=== PATIENT | female | born 1955 | race Caucasian/White ===

== ENCOUNTER 2016-08-24 05:52 | Inpatient (IN) | payer OTHER ==
[~2016-08-24] VITALS: Ht 157.5 cm; Wt 78.0 kg
[2016-08-24] MEDS ORDERED: LISINOPRIL-HCT1 EACH ORAL (05:57)
[2016-08-24] MEDS ORDERED: CYMBALTA60 MG ORAL (05:57)
[2016-08-24] MEDS ORDERED: PRAVASTATIN SOD20 M1 ORAL (05:57)
[2016-08-24 06:12] VITALS: BP 124/66
[2016-08-24 06:19] LABS: BASOPHILS % (AUTO) 1.8 % (0.0-2.0); EOSINOPHILS % (AUTO) 3.1 % (0.0-3.0); LYMPHOCYTES % (AUTO) 32.8 % (20.0-45.0); MEAN CORPUSCULAR HEMOGLOBIN 28.6 PG (27.0-31.0); MEAN CORPUSCULAR HGB CONC 33.5 G/DL (32.0-36.0); MEAN CORPUSCULAR VOLUME 85 FL (80-99); MEAN PLATELET VOLUME 5.9 FL (6.5-10.1); MONOCYTES % (AUTO) 8.9 % (1.0-10.0); NEUTROPHILS % (AUTO) 53.5 % (45.0-75.0); PLATELET COUNT 394 K/UL (150-450); RED BLOOD COUNT 4.85 M/UL (4.20-5.40); RED CELL DISTRIBUTION WIDTH 12.1 % (11.6-14.8); WHITE BLOOD COUNT 6.4 K/UL (4.8-10.8)
--- NOTE | 2016-08-24 06:24 | Emergency Room Report ---
History of Present Illness General Chief Complaint: Palpitations Source: Patient, EMS (ANDRIA PRESTON M.D.) Present Illness HPI 61-year-old female presents ED for evaluation. Patient states she woke up with palpitations. States her heart was racing and she called 911. Per EMS rhythm showed SVT to 200s. Patient was given adenosine x2 doses with cardioversion. Upon arrival patient states she feels better. Denies chest pain or shortness of breath. Does history of hypertension. States she is compliant with her medications. Denies any prior history of SVT. No other aggravating or relieving factors. Denies any other associated symptoms (ANDRIA PRESTON M.D.) Allergies: Coded Allergies: PENICILLINS (Unverified Allergy, Unknown, 08/24/16) Uncoded Allergies: SULFA (Allergy, Unknown, 08/24/16) Patient History Past Medical History: DM, HTN Past Surgical History: none Pertinent Family History: none Social History: Denies: alcohol use, drug use, smoking Now: No Immunizations: UTD Reviewed Nursing Documentation: PMH: Agreed, PSxH: Agreed (ANDRIA PRESTON M.D.) Nursing Documentation-PMH Hx Cardiac Problems: Yes - MITRAL VALVE PROLAPSE,FIBROMYALGIA Hx Hypertension: Yes Hx Diabetes: Yes (ANDRIA PRESTON M.D.) Review of Systems All Other Systems: negative except mentioned in HPI (ANDRIA PRESTON M.D.) Physical Exam Vital Signs Date Time Temp Pulse Resp B/P Pulse Ox O2 Delivery O2 Flow Rate FiO2 08/24/16 05:49 98.1 104 21 117/61 97 Room Air Sp02 EP Interpretation: reviewed, normal General Appearance: no apparent distress, alert, GCS 15, non-toxic Head: normocephalic, atraumatic Eyes: bilateral eye PERRL, bilateral eye normal inspection ENT: hearing grossly normal, normal pharynx, no angioedema, normal voice Neck: full range of motion, supple/symm/no masses Respiratory: chest non-tender, lungs clear, normal breath sounds, speaking full sentences Cardiovascular #1: regular rate, rhythm, no edema Cardiovascular #2: 2+ carotid (R), 2+ carotid (L), 2+ radial (R), 2+ radial (L) , 2+ dorsalis pedis (R), 2+ dorsalis pedis (L) Gastrointestinal: normal bowel sounds, non tender, soft, non-distended, no guarding, no rebound Rectal: deferred Genitourinary: normal inspection, no CVA tenderness Musculoskeletal: back normal, gait/station normal, normal range of motion, non- tender Neurologic: alert, oriented x3, responsive, motor strength/tone normal, sensory intact, speech normal Psychiatric: judgement/insight normal, memory normal, mood/affect normal, no suicidal/homicidal ideation Reflexes: 3+ bicep (R), 3+ bicep (L), 3+ tricep (R), 3+ tricep (L), 3+ knee (R) , 3+ knee (L) Skin: normal color, no rash, warm/dry, well hydrated Lymphatic: no adenopathy (ANDRIA PRESTON M.D.) Medical Decision Making Diagnostic Impression: Primary Impression: SVT (supraventricular tachycardia) ER Course Patient is a fairly complex patient with multiple differential to consideration including but not limited to cardiac cardiopulmonary and vascular emergencies Presented to the initial report for the initial presentation At this time the patient remains awake alert After the initial conversion with adenosine has been in sinus rhythm The patient's blood work initially are all appropriate And the patient is otherwise stable as for further inpatient care Labs Test 08/24/16 06:04 08/24/16 06:32 White Blood Count 6.4 K/UL (4.8-10.8) Red Blood Count 4.85 M/UL (4.20-5.40) Hemoglobin 13.9 G/DL (12.0-16.0) Hematocrit 41.4 % (37.0-47.0) Mean Corpuscular Volume 85 FL (80-99) Mean Corpuscular Hemoglobin 28.6 PG (27.0-31.0) Mean Corpuscular Hemoglobin Concent 33.5 G/DL (32.0-36.0) Red Cell Distribution Width 12.1 % (11.6-14.8) Platelet Count 394 K/UL (150-450) Mean Platelet Volume 5.9 FL (6.5-10.1) Neutrophils (%) (Auto) 53.5 % (45.0-75.0) Lymphocytes (%) (Auto) 32.8 % (20.0-45.0) Monocytes (%) (Auto) 8.9 % (1.0-10.0) Eosinophils (%) (Auto) 3.1 % (0.0-3.0) Basophils (%) (Auto) 1.8 % (0.0-2.0) Sodium Level 140 mEQ/L (135-145) Potassium Level 3.2 mEQ/L (3.4-4.9) Chloride Level 98 mEQ/L (98-107) Carbon Dioxide Level 27 mEQ/L (20-30) Anion Gap 15 (5-15) Blood Urea Nitrogen 23 mg/dL (7-23) Creatinine 1.0 mg/dL (0.5-0.9) Estimat Glomerular Filtration Rate 56.4 mL/min (>60) Glucose Level 168 mg/dL (74-106) Calcium Level 9.4 mg/dL (8.6-10.2) Total Bilirubin 0.2 mg/dL (0.0-1.2) Aspartate Amino Transf (AST/SGOT) 18 U/L (5-40) Alanine Aminotransferase (ALT/SGPT) 17 U/L (3-33) Alkaline Phosphatase 48 U/L (35-104) Total Creatine Kinase 114 U/L (26-140) Creatine Kinase MB 1.7 ng/mL (< 3.8) Creatine Kinase MB Relative Index 1.4 Troponin I < 0.30 ng/mL (<=0.30) Pro-B-Type Natriuretic Peptide 18 pg/mL (0-125) Total Protein 7.5 g/dL (6.6-8.7) Albumin 4.1 g/dL (3.5-5.2) Globulin 3.4 g/dL Albumin/Globulin Ratio 1.2 (1.0-2.7) Urine Color Pale yellow Urine Appearance Clear Urine pH 6.5 (4.5-8.0) Urine Specific [place] 1.015 (1.005-1.035) Urine Protein 1+ (NEGATIVE) Urine Glucose (UA) Negative (NEGATIVE) Urine Ketones Negative (NEGATIVE) Urine Occult Blood 2+ (NEGATIVE) Urine Nitrite Negative (NEGATIVE) Urine Bilirubin Negative (NEGATIVE) Urine Urobilinogen Normal MG/DL (0.0-1.0) Urine Leukocyte Esterase 2+ (NEGATIVE) Urine RBC 2-4 /HPF (0 - 2) Urine WBC 5-10 /HPF (0 - 2) Urine Squamous Epithelial Cells Few /LPF (NONE/OCC) Urine Bacteria Few /HPF (NONE) (GILBERT MUNOZ D.O.) EKG Diagnostic Results Rate: normal Rhythm: NSR ST Segments: no acute changes ASA given to the pt in ED: No (ANDRIA PRESTON M.D.) Rate: normal Rhythm: NSR ST Segments: no acute changes (GILBERT MUNOZ D.O.) Rhythm Strip Diag. Results EP Interpretation: yes Rhythm: NSR, no PVC's, no ectopy (ANDRIA PRESTON M.D.) EP Interpretation: yes Rate: 88 Rhythm: NSR, no PVC's, no ectopy (GILBERT MUNOZ D.O.) Chest X-Ray Diagnostic Results EP Interpretation: Yes Findings: no consolidation, no effusion, no pneumothorax, other - Significant rotation impacts imaging Number of Views: 1 (GILBERT MUNOZ D.O.) Last Vital Signs Date Time Temp Pulse Resp B/P Pulse Ox O2 Delivery O2 Flow Rate FiO2 08/24/16 06:12 98.1 101 18 124/66 100 Room Air (ANDRIA PRESTON M.D.) Status: improved (GILBERT MUNOZ D.O.) Disposition: ADMITTED INPATIENT Condition: Serious ANDRIA PRESTON M.D. August 24, 2016 06:24 GILBERT MUNOZ D.O. August 24, 2016 08:52
[2016-08-24 06:33] LABS: ALBUMIN/GLOBULIN RATIO 1.2 (1.0-2.7); CALCIUM 9.4 mg/dL (8.6-10.2); GLOMERULAR FILTRATION RATE 56.4 mL/min (>60); POTASSIUM 3.2 mEQ/L (3.4-4.9); TOTAL PROTEIN 7.5 g/dL (6.6-8.7)
[2016-08-24 06:38] LABS: TROPONIN I < 0.30 ng/mL (<=0.30)
[2016-08-24 06:45] LABS: CKMB 1.7 ng/mL (< 3.8)
[2016-08-24 07:16] LABS: APPEARANCE,URINE CLEAR; KETONES,URINE NEGATIVE (NEGATIVE); LEUKOCYTE ESTERASE ,URINE 2+ (NEGATIVE); NITRITE,URINE NEGATIVE (NEGATIVE); PH,URINE 6.5 (4.5-8.0); PROTEIN,URINE 1+ (NEGATIVE); UROBILINOGEN,URINE NORMAL MG/DL (0.0-1.0)
[2016-08-24 07:31] LABS: BACTERIA,URINE FEW /HPF; SQUAMOUS EPITHELIAL CELL,UR FEW /LPF (NONE/OCC)
[2016-08-24 07:47] VITALS: BP 124/66
[2016-08-24 09:14] VITALS: BP 137/54
--- NOTE | 2016-08-24 10:23 | History & Physical ---
History and Physical History & Physicial seen and examined. Dictation completed Nadya Manriquez MD August 24, 2016 10:23
[2016-08-24] MEDS ORDERED: Enoxaparin 40mg Inj SUBQ SCH (11:30)
--- NOTE | 2016-08-24 11:44 | Diagnostic Imaging Report ---
Indication: Chest Pain Comparison: None A single view chest radiograph was obtained. Findings: No definite infiltrate or pulmonary vascular congestion identified. The heart is enlarged. The aorta is mildly enlarged consistent with atherosclerotic vascular disease. The bones are osteopenic. Impression: No acute disease
[2016-08-24 12:00] VITALS: BP_SYST 128; BP_SYST 194; BP_DIAS 100; BP_DIAS 79
[2016-08-24 15:13] LABS: CHOLESTEROL/HDL RATIO 2.9 (3.3-4.4); HEMOLYSIS 24; IRON 60 ug/dL (37-145); TOTAL IRON BINDING CAPACITY 290 ug/dL (250-400)
[2016-08-24 15:21] LABS: THYROID STIMULATING HORMONE 3.94 uIU/mL (0.300-4.500)
[2016-08-24 15:22] LABS: TROPONIN I 0.44 ng/mL (<=0.30)
[2016-08-24 16:00] VITALS: BP 120/75
[2016-08-24] MEDS ORDERED: Enoxaparin 40mg Inj SUBQ ONE (17:15)
--- NOTE | 2016-08-24 17:31 | Cardiology Report ---
APPROVED REPORT EKG Measurement Heart [id number] Sinus tachycardia Inferior infarct, age undetermined Abnormal ECG
--- NOTE | 2016-08-24 18:18 | History and Physical Report ---
DATE OF ADMISSION: 08/24/2016 SOURCE OF INFORMATION: Patient and EMR. 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 The patient's initiated called to the ER and the patient was transferred 911 call in to the ER. The patient was found to have a pulse rate of more than 130 and remainder of the evaluation was found within normal limits. The patient denied any chest pain. The patient complained of shortness of breath. The patient denies any severe headache. Denies any abdominal pain. PAST MEDICAL HISTORY: Hypertension, anxiety, depression, and hyperlipidemia. PAST SURGICAL HISTORY: Appendectomy. HOME MEDICATIONS: Including but not limited to, duloxetine, lisinopril, and pravastatin. ALLERGIES: Penicillin and sulfa. SOCIAL HISTORY: The patient denies history of illicit drug abuse, smoking, or alcohol abuse. The patient is , one child, living with . REVIEW OF SYSTEMS: All 10-point review of systems are reviewed. Pertinent positive and negative are mentioned as above. PHYSICAL EXAMINATION: VITAL SIGNS: Blood pressure 130/70, temperature 98.2 degrees, and pulse oximetry 99% on room air. HEAD AND NECK: Atraumatic and normocephalic. CHEST: Clear to auscultation. HEART: S1 and S2. Regular rate and rhythm. ABDOMEN: Soft. No organomegaly. MUSCULOSKELETAL: No gross focal motor deficit. NEUROLOGY: The patient is awake, alert, and oriented x3. DIAGNOSTIC DATA: EKG is positive for nonspecific finding suggestive of left hemiblock. LABORATORY DATA: Labs dated 08/24/2016 reviewed shows WBC 6.4, hemoglobin 13.9, and platelets 394,000. Sodium 140, potassium 3.2, BUN 23, creatinine 1, and glucose 160. ASSESSMENT: 1. Supraventricular tachycardia. 2. Acute encephalopathy secondary to supraventricular tachycardia. 3. Hypertension. 4. Hyperlipidemia. 5. Hypokalemia. PLAN OF CARE: Cardiology, Dr. Singh has been notified. A1c, TSH, and lipid panel have been reviewed. Nadya Manriquez M.D. DR: SHIVANI JOB#: [id number] CC:
[2016-08-24 20:00] VITALS: BP 115/67
[2016-08-24] MEDS: DULoxetine 30mg cap ORAL SCH (22:12)
[2016-08-24 22:13] LABS: TROPONIN I < 0.30 ng/mL (<=0.30)
[2016-08-24] MEDS: Enoxaparin 80mg Inj SUBQ SCH (22:17)
[2016-08-25 00:19] VITALS: BP 134/50
[2016-08-25 04:00] VITALS: BP 126/78
[2016-08-25 04:11] LABS: EOSINOPHILS % (AUTO) 2.1 % (0.0-3.0); MEAN CORPUSCULAR HEMOGLOBIN 29.2 PG (27.0-31.0); MEAN CORPUSCULAR HGB CONC 33.9 G/DL (32.0-36.0); MEAN CORPUSCULAR VOLUME 86 FL (80-99); MEAN PLATELET VOLUME 5.9 FL (6.5-10.1); MONOCYTES % (AUTO) 6.8 % (1.0-10.0); NEUTROPHILS % (AUTO) 65.1 % (45.0-75.0); PLATELET COUNT 334 K/UL (150-450); RED BLOOD COUNT 4.28 M/UL (4.20-5.40); RED CELL DISTRIBUTION WIDTH 12.2 % (11.6-14.8); WHITE BLOOD COUNT 8.1 K/UL (4.8-10.8)
[2016-08-25 04:29] LABS: ALANINE AMINOTRANSFERASE 14 U/L (3-33); ALBUMIN/GLOBULIN RATIO 1.3 (1.0-2.7); ANION GAP 15 (5-15); ASPARTATE AMINO TRANSFERASE 16 U/L (5-40); CALCIUM 8.6 mg/dL (8.6-10.2); CARBON DIOXIDE 23 mEQ/L (20-30); CHLORIDE 104 mEQ/L (98-107); CREATININE 0.8 mg/dL (0.5-0.9); GLOMERULAR FILTRATION RATE > 60 mL/min (>60); HEMOLYSIS 3; POTASSIUM 3.8 mEQ/L (3.4-4.9); SODIUM 142 mEQ/L (135-145); TOTAL PROTEIN 6.3 g/dL (6.6-8.7)
[2016-08-25 06:34] LABS: TROPONIN I < 0.30 ng/mL (<=0.30)
[2016-08-25 08:12] VITALS: BP 129/75
[2016-08-25] MEDS: Enoxaparin 80mg Inj SUBQ SCH ×2 (08:32→20:51)
[2016-08-25 10:39] LABS: TROPONIN I < 0.30 ng/mL (<=0.30)
[2016-08-25 11:23] VITALS: BP 133/72
[2016-08-25] MEDS: Aspirin EC 81mg tab ORAL SCH (12:01)
[2016-08-25 12:25] LABS: PROTHROMBIN TIME 10.4 SEC (9.30-11.50)
--- NOTE | 2016-08-25 12:41 | General Progress Note ---
Assessment/Plan Status: stable Assessment/Plan 1. Supraventricular tachycardia. 2. Acute encephalopathy secondary to supraventricular tachycardia. 3. Hypertension. 4. Hyperlipidemia. 5. Hypokalemia. 6. Abnormal Troponin: likely trop-leak 7. UTI Plan: Pending cardiology workup start cipro 500 mg Bid Subjective ROS Limited/Unobtainable: No Constitutional: Reports: no symptoms HEENT: Reports: no symptoms Cardiovascular: Reports: no symptoms Respiratory: Reports: no symptoms Allergies: Coded Allergies: PENICILLINS (Unverified Allergy, Unknown, 08/24/16) Uncoded Allergies: SULFA (Allergy, Unknown, 08/24/16) Objective Last 24 Hour Vital Signs Date Time Temp Pulse Resp B/P Pulse Ox O2 Delivery O2 Flow Rate FiO2 08/25/16 11:23 96.6 84 18 133/72 96 Room Air 08/25/16 08:12 97.7 92 18 129/75 95 Room Air 08/25/16 08:08 84 08/25/16 04:00 97.3 83 18 126/78 97 Room Air 08/25/16 04:00 74 08/25/16 00:19 97.6 80 19 134/50 98 Room Air 08/25/16 00:00 72 08/24/16 20:00 91 08/24/16 20:00 98.1 75 20 115/67 98 Room Air 08/24/16 16:00 91 08/24/16 16:00 97.7 94 20 120/75 96 Room Air Intake and Output 08/24/16 08/25/16 19:00 07:00 Intake Total 800 ml 200 ml Output Total 600 ml Balance 200 ml 200 ml Intake Oral 300 ml 200 ml IV Total 500 ml Output Urine Total 600 ml # Voids 1 2 Laboratory Tests 08/24/16 14:20: Iron Level 60, Total Iron Binding Capacity 290, Percent Iron Saturation 21, Unsaturated Iron Binding 230, Triglycerides Level 101, Cholesterol Level 151, LDL Cholesterol 79, HDL Cholesterol 52, Cholesterol/HDL Ratio 2.9L, Thyroid Stimulating Hormone (TSH) 3.940, Free Thyroxine 0.99 08/24/16 14:25: Troponin I 0.44*H 08/24/16 21:50: Troponin I < 0.30 08/25/16 03:45: Troponin I < 0.30, White Blood Count 8.1, Red Blood Count 4.28, Hemoglobin 12.5 , Hematocrit 36.9L, Mean Corpuscular Volume 86, Mean Corpuscular Hemoglobin 29.2 , Mean Corpuscular Hemoglobin Concent 33.9, Red Cell Distribution Width 12.2, Platelet Count 334, Mean Platelet Volume 5.9L, Neutrophils (%) (Auto) 65.1, Lymphocytes (%) (Auto) 25.0, Monocytes (%) (Auto) 6.8, Eosinophils (%) (Auto) 2.1, Basophils (%) (Auto) 1.0, Sodium Level 142, Potassium Level 3.8, Chloride Level 104, Carbon Dioxide Level 23, Anion Gap 15, Blood Urea Nitrogen 20, Creatinine 0.8, Estimat Glomerular Filtration Rate > 60, Glucose Level 104, Calcium Level 8.6, Total Bilirubin 0.3, Aspartate Amino Transf (AST/SGOT) 16, Alanine Aminotransferase (ALT/SGPT) 14, Alkaline Phosphatase 38, Total Protein 6.3L, Albumin 3.6, Globulin 2.7, Albumin/Globulin Ratio 1.3 08/25/16 09:45: Troponin I < 0.30 08/25/16 12:10: Prothrombin Time 10.4, Prothromb Time International Ratio 1.0 Height (Feet): 5 Height (Inches): 2.00 Weight (Pounds): 172 General Appearance: no apparent distress EENT: PERRL/EOMI Neck: supple Cardiovascular: normal rate Respiratory/Chest: lungs clear Abdomen: soft Extremities: non-tender 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
[2016-08-25] MEDS: Ciprofloxacin 500mg tab ORAL SCH ×2 (14:42→23:53)
[2016-08-25 15:37] VITALS: BP 117/63
--- NOTE | 2016-08-25 18:24 | Cardiology Progress Note ---
Assessment/Plan Assessment/Plan The patient is seen and examined, full consult note will be dictated. Objective Last 24 Hour Vital Signs Date Time Temp Pulse Resp B/P Pulse Ox O2 Delivery O2 Flow Rate FiO2 08/25/16 15:43 81 08/25/16 15:37 97.7 90 18 117/63 96 Room Air 08/25/16 11:26 81 08/25/16 11:23 96.6 84 18 133/72 96 Room Air 08/25/16 08:12 97.7 92 18 129/75 95 Room Air 08/25/16 08:08 84 08/25/16 04:00 97.3 83 18 126/78 97 Room Air 08/25/16 04:00 74 08/25/16 00:19 97.6 80 19 134/50 98 Room Air 08/25/16 00:00 72 08/24/16 20:00 91 08/24/16 20:00 98.1 75 20 115/67 98 Room Air Intake and Output 08/24/16 08/25/16 19:00 07:00 Intake Total 800 ml 200 ml Output Total 600 ml Balance 200 ml 200 ml Intake Oral 300 ml 200 ml IV Total 500 ml Output Urine Total 600 ml # Voids 1 2 Laboratory Tests Test 08/24/16 21:50 08/25/16 03:45 08/25/16 09:45 08/25/16 12:10 Troponin I < 0.30 ng/mL (<=0.30) < 0.30 ng/mL (<=0.30) < 0.30 ng/mL (<=0.30) White Blood Count 8.1 K/UL (4.8-10.8) Red Blood Count 4.28 M/UL (4.20-5.40) Hemoglobin 12.5 G/DL (12.0-16.0) Hematocrit 36.9 % (37.0-47.0) L Mean Corpuscular Volume 86 FL (80-99) Mean Corpuscular Hemoglobin 29.2 PG (27.0-31.0) Mean Corpuscular Hemoglobin Concent 33.9 G/DL (32.0-36.0) Red Cell Distribution Width 12.2 % (11.6-14.8) Platelet Count 334 K/UL (150-450) Mean Platelet Volume 5.9 FL (6.5-10.1) L Neutrophils (%) (Auto) 65.1 % (45.0-75.0) Lymphocytes (%) (Auto) 25.0 % (20.0-45.0) Monocytes (%) (Auto) 6.8 % (1.0-10.0) Eosinophils (%) (Auto) 2.1 % (0.0-3.0) Basophils (%) (Auto) 1.0 % (0.0-2.0) Sodium Level 142 mEQ/L (135-145) Potassium Level 3.8 mEQ/L (3.4-4.9) Chloride Level 104 mEQ/L (98-107) Carbon Dioxide Level 23 mEQ/L (20-30) Anion Gap 15 (5-15) Blood Urea Nitrogen 20 mg/dL (7-23) Creatinine 0.8 mg/dL (0.5-0.9) Estimat Glomerular Filtration Rate > 60 mL/min (>60) Glucose Level 104 mg/dL (74-106) Calcium Level 8.6 mg/dL (8.6-10.2) Total Bilirubin 0.3 mg/dL (0.0-1.2) Aspartate Amino Transf (AST/SGOT) 16 U/L (5-40) Alanine Aminotransferase (ALT/SGPT) 14 U/L (3-33) Alkaline Phosphatase 38 U/L (35-104) Total Protein 6.3 g/dL (6.6-8.7) L Albumin 3.6 g/dL (3.5-5.2) Globulin 2.7 g/dL Albumin/Globulin Ratio 1.3 (1.0-2.7) Prothrombin Time 10.4 SEC (9.30-11.50) Prothromb Time International Ratio 1.0 (0.9-1.1) CLARA DE LA PAZ August 25, 2016 18:24
[2016-08-25 20:33] VITALS: BP 141/78
[2016-08-25] MEDS: DULoxetine 30mg cap ORAL SCH (20:48)
[2016-08-26 00:12] VITALS: BP 130/73
[2016-08-26 04:11] VITALS: BP 122/73
[2016-08-26 07:25] LABS: BASOPHILS % (AUTO) 1.1 % (0.0-2.0); EOSINOPHILS % (AUTO) 3.1 % (0.0-3.0); LYMPHOCYTES % (AUTO) 24.2 % (20.0-45.0); MEAN CORPUSCULAR HEMOGLOBIN 28.8 PG (27.0-31.0); MEAN CORPUSCULAR HGB CONC 33.5 G/DL (32.0-36.0); MEAN CORPUSCULAR VOLUME 86 FL (80-99); MONOCYTES % (AUTO) 7.7 % (1.0-10.0); PLATELET COUNT 341 K/UL (150-450); RED BLOOD COUNT 4.53 M/UL (4.20-5.40); RED CELL DISTRIBUTION WIDTH 12.2 % (11.6-14.8); WHITE BLOOD COUNT 6.2 K/UL (4.8-10.8)
[2016-08-26 08:00] VITALS: BP 133/82
[2016-08-26 08:24] LABS: ALANINE AMINOTRANSFERASE 15 U/L (3-33); ALBUMIN/GLOBULIN RATIO 1.3 (1.0-2.7); ANION GAP 15 (5-15); ASPARTATE AMINO TRANSFERASE 18 U/L (5-40); CALCIUM 8.9 mg/dL (8.6-10.2); CARBON DIOXIDE 24 mEQ/L (20-30); CHLORIDE 101 mEQ/L (98-107); CREATININE 0.9 mg/dL (0.5-0.9); GLOMERULAR FILTRATION RATE > 60 mL/min (>60); HEMOLYSIS 5; POTASSIUM 3.8 mEQ/L (3.4-4.9); SODIUM 140 mEQ/L (135-145); TOTAL PROTEIN 6.5 g/dL (6.6-8.7)
--- NOTE | 2016-08-26 08:50 | Cardiology Report ---
APPROVED REPORT EXAM: Two-dimensional and M-mode echocardiogram with Doppler and color Doppler. INDICATION Palpitation M-Mode DIMENSIONS IVSd0.9 (0.7-1.1cm)Left Atrium (MM)3.2 (1.6-4.0cm) LVDd4.5 (3.5-5.6cm)Aortic Root2.3 (2.0-3.7cm) PWd0.7 (0.7-1.1cm)Aortic Cusp Exc.1.9 (1.5-2.0cm) LVDs3.0 (2.5-4.0cm) PWs1.0 cm Technically difficult study due to poor acoustic windows. Normal left ventricular chamber size, systolic function and wall motion. Left ventricular ejection fraction estimated to be 55-60%. Mild left ventricular hypertrophy. No evidence of pericardial fat or effusion. Mild left atrial enlargement by 2D. Right cardiac chamber sizes are within normal limits. Focal aortic valve sclerosis with adequate cusp excursion Thickened mitral valve leaflets with normal excursion. Mitral annulus and aortic root calcification. Pulmonic valve not well visualized. Normal tricuspid valve structure. IVC not obtainable. A color flow and spectral Doppler study was performed and revealed: No aortic regurgitation. Trace mitral regurgitation. Left ventricular diastolic dysfunction grade 1. No tricuspid regurgitation. Pulmonic regurgitation present.
[2016-08-26] MEDS: Aspirin EC 81mg tab ORAL SCH (09:35)
[2016-08-26] MEDS: Ciprofloxacin 500mg tab ORAL SCH (09:36)
[2016-08-26] MEDS: Enoxaparin 80mg Inj SUBQ SCH (09:37)
--- NOTE | 2016-08-26 10:53 | General Progress Note ---
Assessment/Plan Status: stable Assessment/Plan 1. Supraventricular tachycardia. 2. Acute encephalopathy secondary to supraventricular tachycardia. 3. Hypertension. 4. Hyperlipidemia. 5. Hypokalemia. 6. Abnormal Troponin: likely trop-leak 7. UTI Plan: Pending cardiology workup start cipro 500 mg Bid Subjective ROS Limited/Unobtainable: Yes Constitutional: Reports: no symptoms HEENT: Reports: no symptoms Cardiovascular: Reports: no symptoms Allergies: Coded Allergies: PENICILLINS (Unverified Allergy, Unknown, 08/24/16) Uncoded Allergies: SULFA (Allergy, Unknown, 08/24/16) Objective Last 24 Hour Vital Signs Date Time Temp Pulse Resp B/P Pulse Ox O2 Delivery O2 Flow Rate FiO2 08/26/16 08:00 97.6 88 20 133/82 95 Room Air 08/26/16 04:11 98.7 81 19 122/73 98 Room Air 08/26/16 04:00 75 08/26/16 00:12 98.6 77 18 130/73 94 Room Air 08/26/16 00:00 77 08/25/16 20:33 98.3 87 19 141/78 96 Room Air 08/25/16 20:00 78 08/25/16 15:43 81 08/25/16 15:37 97.7 90 18 117/63 96 Room Air 08/25/16 11:26 81 08/25/16 11:23 96.6 84 18 133/72 96 Room Air Intake and Output 08/25/16 08/26/16 19:00 07:00 Intake Total 730 ml Balance 730 ml Intake Oral 730 ml # Voids 3 2 Laboratory Tests 08/25/16 12:10: Prothrombin Time 10.4, Prothromb Time International Ratio 1.0 08/26/16 04:50: White Blood Count 6.2, Red Blood Count 4.53, Hemoglobin 13.0, Hematocrit 38.9, Mean Corpuscular Volume 86, Mean Corpuscular Hemoglobin 28.8, Mean Corpuscular Hemoglobin Concent 33.5, Red Cell Distribution Width 12.2, Platelet Count 341, Mean Platelet Volume 6.0L, Neutrophils (%) (Auto) 64.0, Lymphocytes (%) (Auto) 24.2, Monocytes (%) (Auto) 7.7, Eosinophils (%) (Auto) 3.1H, Basophils (%) (Auto ) 1.1, Sodium Level 140, Potassium Level 3.8, Chloride Level 101, Carbon Dioxide Level 24, Anion Gap 15, Blood Urea Nitrogen 17, Creatinine 0.9, Estimat Glomerular Filtration Rate > 60, Glucose Level 102, Calcium Level 8.9, Total Bilirubin 0.4, Aspartate Amino Transf (AST/SGOT) 18, Alanine Aminotransferase ( ALT/SGPT) 15, Alkaline Phosphatase 43, Total Protein 6.5L, Albumin 3.7, Globulin 2.8, Albumin/Globulin Ratio 1.3 Height (Feet): 5 Height (Inches): 2.00 Weight (Pounds): 172 General Appearance: no apparent distress EENT: PERRL/EOMI Neck: supple Cardiovascular: normal rate Respiratory/Chest: lungs clear Abdomen: soft Extremities: non-tender 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
--- NOTE | 2016-08-26 11:35 | Diagnostic Imaging Report ---
APPROVED REPORT CPT Code: 41203 Vascular Symptoms Dizziness and Vertigo CAROTID (BILATERAL) - Imaging reveals no significant plaque within the right and left extracranial carotid arteries. The Doppler spectral flow analysis is within normal limits throughout the extracranial carotid arteries bilaterally. VERTEBRAL- The vertebral arteries are within normal limits.
[2016-08-26 12:11] VITALS: BP 135/100
--- NOTE | 2016-08-26 12:40 | Consultation ---
DATE OF CONSULTATION: 08/25/2016 CARDIOLOGY CONSULTATION CONSULTING PHYSICIAN: Seferino Singh M.D. REFERRING PHYSICIAN: Nadya Manriquez M.D. REASON FOR CONSULTATION: Management of tachyarrhythmias. HISTORY OF PRESENT ILLNESS: This is a very pleasant, 61-year-old lady with 2 weeks of with feeling of heart fluttering and dizziness associated with shortness of breath. This is the first time that she ever felt this condition. She called 911. EMS rhythm showed the supraventricular tachycardia rate of around 200. The patient was initially given 6 mg of adenosine, which did not work. She responded to the second dose of adenosine, which converted her supraventricular tachycardia to sinus rhythm. The patient's condition improved on arrival to the hospital. She denies any chest pain or shortness of breath. Her initial troponin level was slightly elevated. Cardiology consultation was made at request of Dr. Manriquez for evaluation and management of this condition. As mentioned above, this is the first event of palpitation or heart fluttering. The patient is relatively healthy. Although, she has risk factors for coronary artery disease including diabetes mellitus and hypertension. She is physically active and denies any recent worsening. Denies any dyspnea on exertion or chest pain. PAST MEDICAL HISTORY: Including hypertension and diabetes mellitus. PAST SURGICAL HISTORY: . LIST OF MEDICATIONS: Lisinopril, hydrochlorothiazide 10-12.5 mg one tablet p.o. daily, pravastatin 20 mg p.o. q.h.s., and Cymbalta 50 mg p.o. daily. SOCIAL HISTORY: Denies any tobacco, alcohol, or illicit drug use. She is . has Parkinson's. She has 1 child. REVIEW OF SYSTEMS: HEENT: Denies any headache, diplopia, or blurred vision. Constitutional: Denies any fever, chills, night sweats, or weight loss. Cardiovascular: Palpitation or heart fluttering as mentioned above, but denies any chest pain, shortness of breath, PND, orthopnea, or leg swelling. Pulmonary: Denies any cough or hemoptysis. Gastrointestinal: Denies any nausea, vomiting, diarrhea, constipation, abdominal pain, or GI bleed. Genitourinary: Denies any hematuria, dysuria, or incontinence. Neurologic: Denies any motor dysfunction, sensory deficits, or altered speech. PHYSICAL EXAMINATION: VITAL SIGNS: Blood pressure was 117/61, pulse 104, respirations 21, O2 saturation 97% on room air, and temperature 98.1 degrees Fahrenheit. GENERAL: The patient is a very pleasant, 61-year-old lady, in no apparent respiratory distress. Alert, awake and constant. HEENT: Atraumatic and normocephalic. Anicteric. Pupils are equal, round, and reactive to light and accommodation. Extraocular muscles are intact. NECK: JVP is less than 5 cm. No carotid bruits. Carotid upstrokes 2+ bilaterally. CARDIOVASCULAR: Normal S1 and S2. Regular rate and rhythm. No murmurs, gallops, or rubs. PMI is at fourth intercostal space in the midclavicular line. LUNGS: Clear to auscultation bilaterally. ABDOMEN: Soft, nontender, and nondistended. No hepatosplenomegaly. Positive bowel sounds. EXTREMITIES: No evidence of edema, clubbing, or cyanosis. LABORATORY AND DIAGNOSTIC FINDINGS: WBC 6.4, hemoglobin 13.9, hematocrit 41.4, and platelet count is 394,000. Sodium 140, potassium 3.2, chloride 98, bicarbonate 27, BUN 23, creatinine 1.0, and glucose is 116. Calcium is 9.4. Troponin I is less than 0.3. ProBNP was 18. LDL was 79, HDL 52, and total cholesterol is 151. TSH is 2.94. Chest x-ray shows no acute cardiopulmonary disease. An electrocardiogram shows sinus tachycardia rate of 102 with normal QT interval, inferior infarct age indeterminate. A rhythm strip was reviewed and essentially shows a supraventricular tachycardia most likely atrioventricular reentrant tachycardia heart rate of approximately 200. ASSESSMENT AND PLAN: The patient is a very delightful 61-year-old female, seen in Cardiology consultation at request of Dr. Manriquez. 1. Paroxysmal supraventricular tachycardia most likely atrioventricular reentrant tachycardia in view of its response to the adenosine 12 milligram. The patient was advised to reduce vagal tone. If this rhythm returns at this time, the patient requires no therapy. I will continue observing the patient. If she has had this one episode, which is likely the cause the patient's symptoms of shortness of breath and palpitation. 2. History of hypertension. 3. History of diabetes mellitus. 4. History of dyslipidemia. I would like to thank, Dr. Manriquez, for allowing me to participate in the care of this patient. Seferino Singh M.D. DR: TONY JOB#: [id number] CC:
--- NOTE | 2016-08-26 13:37 | Cardiology Progress Note ---
Assessment/Plan Assessment/Plan 1. PSVT, likely AVNRT, given response to 12mg of adenosine, now SR, discussed RFA of AV node if this is recurrent. 2. Mitral valve prolapse, posterior leaflet with trace mitral regurgitation. 3. Normal LV systolic function. 4. Slight elevation of trop #1 is due to tachycardia. Subjective Subjective Sinus rhythm at 93. Objective Last 24 Hour Vital Signs Date Time Temp Pulse Resp B/P Pulse Ox O2 Delivery O2 Flow Rate FiO2 08/26/16 12:11 98.2 85 20 135/100 97 Room Air 08/26/16 11:40 92 08/26/16 08:00 97.6 88 20 133/82 95 Room Air 08/26/16 07:51 87 08/26/16 04:11 98.7 81 19 122/73 98 Room Air 08/26/16 04:00 75 08/26/16 00:12 98.6 77 18 130/73 94 Room Air 08/26/16 00:00 77 08/25/16 20:33 98.3 87 19 141/78 96 Room Air 08/25/16 20:00 78 08/25/16 15:43 81 08/25/16 15:37 97.7 90 18 117/63 96 Room Air Intake and Output 08/25/16 08/26/16 19:00 07:00 Intake Total 730 ml Balance 730 ml Intake Oral 730 ml # Voids 3 2 2D Echo: EF 55%, Mild LVH, MVP with trace MR, grade I LVDD Laboratory Tests Test 08/26/16 04:50 White Blood Count 6.2 K/UL (4.8-10.8) Red Blood Count 4.53 M/UL (4.20-5.40) Hemoglobin 13.0 G/DL (12.0-16.0) Hematocrit 38.9 % (37.0-47.0) Mean Corpuscular Volume 86 FL (80-99) Mean Corpuscular Hemoglobin 28.8 PG (27.0-31.0) Mean Corpuscular Hemoglobin Concent 33.5 G/DL (32.0-36.0) Red Cell Distribution Width 12.2 % (11.6-14.8) Platelet Count 341 K/UL (150-450) Mean Platelet Volume 6.0 FL (6.5-10.1) L Neutrophils (%) (Auto) 64.0 % (45.0-75.0) Lymphocytes (%) (Auto) 24.2 % (20.0-45.0) Monocytes (%) (Auto) 7.7 % (1.0-10.0) Eosinophils (%) (Auto) 3.1 % (0.0-3.0) H Basophils (%) (Auto) 1.1 % (0.0-2.0) Sodium Level 140 mEQ/L (135-145) Potassium Level 3.8 mEQ/L (3.4-4.9) Chloride Level 101 mEQ/L (98-107) Carbon Dioxide Level 24 mEQ/L (20-30) Anion Gap 15 (5-15) Blood Urea Nitrogen 17 mg/dL (7-23) Creatinine 0.9 mg/dL (0.5-0.9) Estimat Glomerular Filtration Rate > 60 mL/min (>60) Glucose Level 102 mg/dL (74-106) Calcium Level 8.9 mg/dL (8.6-10.2) Total Bilirubin 0.4 mg/dL (0.0-1.2) Aspartate Amino Transf (AST/SGOT) 18 U/L (5-40) Alanine Aminotransferase (ALT/SGPT) 15 U/L (3-33) Alkaline Phosphatase 43 U/L (35-104) Total Protein 6.5 g/dL (6.6-8.7) L Albumin 3.7 g/dL (3.5-5.2) Globulin 2.8 g/dL Albumin/Globulin Ratio 1.3 (1.0-2.7) Objective HEENT: Atraumatic and normocephalic. Anicteric. Pupils are equal, round, and reactive to light and accommodation. Extraocular muscles are intact. NECK: JVP is less than 5 cm. No carotid bruits. Carotid upstrokes 2+ bilaterally. CARDIOVASCULAR: Normal S1 and S2. Regular rate and rhythm. No murmurs, gallops, or rubs. PMI is at fourth intercostal space in the midclavicular line. LUNGS: Clear to auscultation bilaterally. ABDOMEN: Soft, nontender, and nondistended. No hepatosplenomegaly. Positive bowel sounds. EXTREMITIES: No evidence of edema, clubbing, or cyanosis. CLARA DE LA PAZ August 26, 2016 13:37
--- NOTE | 2016-08-26 19:00 | Cardiology Report ---
APPROVED REPORT EKG Measurement Heart [id number] Normal sinus rhythm Left axis deviation Inferior infarct, age undetermined Possible Anterolateral infarct, age undetermined Prolonged QT Abnormal ECG
--- NOTE | 2016-08-27 12:07 | Discharge Summary ---
Discharge Summary Hospital Course Date of Admission August 24, 2016 at 08:11 Date of Discharge August 26, 2016 at 14:53 Admitting Diagnosis Supraventricular tachycardia IVELISSE Mathur is a 61 year old female who was admitted on August 24, 2016 at 08: 11 for Supraventicular Tachycardia Procedures dc summary #[id number] Discharge Medications Continued Medications: Duloxetine Hcl* (Cymbalta*) 60 Mg Capsule.dr 60 MG ORAL DAILY, CAP Lisinopril/Hydrochlorothiazide 10-12.5 Mg Tab (Lisinopril-Hctz 10-12.5 Mg Tab) 1 Each Tablet 1 TAB ORAL DAILY, TAB Pravastatin Sod* (Pravastatin Sod*) 20 Mg Tablet 20 MG ORAL BEDTIME, TAB Discharge Condition Upon Discharge: stable Discharge Disposition Patient was discharged to Home (01) Discharge Diagnoses: Discharge Instructions Discharge Instructions Special Instructions I have been assigned to complete a D/C Summary on this account. I was not involved in the patient management Janett Guzman NP ([place]) August 27, 2016 12:07
--- NOTE | 2016-08-28 03:49 | Discharge Summary 2 SIG ---
DATE OF ADMISSION: 08/24/2016 DATE OF DISCHARGE: 08/26/2016 REASON FOR ADMISSION: 61-year-old female came to the emergency room to be evaluated for palpitations. She woke up with palpitations. She felt that her heart was racing and she called 911. Per paramedics, her rhythm showed supraventricular tachycardia in rate up to 200. The patient was given adenosine for two doses. Upon arrival to the emergency room, the patient stated that she felt better. heart rate was stable. She denied chest pain, denied shortness of breath. The patient has a history of hypertension and pre-diabetes as well as the hyperlipidemia. The patient stated she was compliant with her medications. The patient denied any prior history of SVT. Troponin was negative. Laboratory work was essentially stable. EKG showed sinus rhythm. Chest x-ray revealed no acute cardiopulmonary pathology. The patient was admitted for further management. ADMITTING DIAGNOSIS: Supraventricular tachycardia. HOSPITAL COURSE: The patient admitted to the telemetry floor. Cardiology consult was requested. Solvent Mixer seen and evaluated the patient. 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 The patient was advised to reduce vagal tone. If the rhythm not return, the patient does not need any therapy. Solvent Mixer wanted to observe additional day on the telemetry. If she had another episode, then she might need to consider treatment. The patient has a history of hypertension, pre-diabetes, and dyslipidemia. Blood pressure was managed with CIERRA inhibitor and was stable. No medication for diabetes at this time. Glucose was stable on the laboratory test. Lipid panel within normal limits. Continue statin. Carotid duplex was essentially negative. Potassium upon arrival -3.2, potassium was replaced and stable afterwards. The patient had a urinalysis with pyuria, but no evidence of bacteria. The patient started on Cipro for three days. First troponin was negative, second was slightly elevated -0.44. According to invasive manager, slight elevation probably likely to tachycardia/ troponin leaking due to demand ischemia. Next three troponin were all negative. Echocardiogram revealed preserved ejection fraction 55% to 60% . The patient was stable for discharge per Cardiology. DISCHARGE DIAGNOSES: 1. Paroxysmal supraventricular tachycardia 2. 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 2. Acute encephalopathy, secondary to supraventricular tachycardia, resolved. 3. Hypertension. 4. Pre-diabetes. 5. Dyslipidemia. 6. Hypokalemia. 7. Possible UTI DISCHARGE MEDICATIONS: See medication reconciliation list. DISCHARGE INSTRUCTIONS: The patient discharged home. Follow up with primary medical doctor. Nadya Manriquez M.D. I have been assigned to dictate discharge summary on this account and I was not involved in the patient's management. Janett copelandCary michel DR: VIVIANE JOB#: [id number] CC: HEIDE
== END 2016-08-26 14:53 | disposition home or self-care (01) | DRG 308 ==
LOC: EDBD 05:52 → EMR 06:46 → EDBEDREQ 08:01 → 2E 08:11 → EDBEDREQ 09:12 → 2E 18:47
DX: I47.1 Supraventricular tachycardia (principal); G93.40 Encephalopathy, unspecified; N39.0 Urinary tract infection, site not specified; I10 Essential (primary) hypertension; R73.03 Prediabetes; E78.5 Hyperlipidemia, unspecified; E87.6 Hypokalemia; Z88.0 Allergy status to penicillin; Z88.2 Allergy status to sulfonamides; I34.1 Nonrheumatic mitral (valve) prolapse
CPT/HCPCS: 36415; 71010; 80053; 80061; 81003; 82550; 82553; 83540; 83550; 83880; 84439; 84443; 84484; 85025; 85610; 93005; 93306; 93880; J8499